=== PATIENT | female | born 1990 | race African-American/Black ===

== ENCOUNTER 2019-05-21 06:12 | Observation (INO) ==
[2019-05-21] MEDS ORDERED: ONDANSETRON 4 MG/2 ML VIAL IV STA ×2 (06:34→09:15)
[2019-05-21] MEDS ORDERED: SODIUM CHLORIDE 0.9% 1,000 ML IV STA (06:34)
[2019-05-21] MEDS ORDERED: HYDROmorphone 2 MG/1 ML VIAL IV STA ×2 (06:34→09:15)
[2019-05-21 06:39] LABS: Basophils % 0.4 % (0.0-0.8); Eosinophils # 0.1 10*3/uL (0.0-0.87); Eosinophils % 1.3 % (0.00-10.9); Hematocrit 37.5 VOL% (35.7-47.0); Hemoglobin 12.3 GM/DL (12.0-16.0); Immature Granulocytes % 0.3 %; Immature Granulocytes Absolute 0.03 #; Lymphocytes # 1.5 10*3/uL (1.4-4.0); Lymphocytes % 16.4 % (21.3-54.2); Mean Corpuscular HGB Conc 32.8 GM/DL (32-36); Mean Corpuscular Volume 99.7 FL (87-102); Mean Platelet Volume 9.5 FL (9.6-12.0); Monocytes % 9.8 % (1.7-12.7); Neutrophils % 71.8 % (38.7-73.9); Platelet Count 290 T/CUMM (130-400); Red Blood Count 3.76 MC/CUMM (3.8-5.5); Red Cell Distribution Width 12.9 % (9.3-17.3); White Blood Count 9.3 T/CUMM (4-12)
[2019-05-21 06:59] LABS: Albumin 3.6 G/DL (3.4-5.0); Bilirubin,Total 0.5 MG/DL (0.2-1.0); Osmolality,Calculated 273.7 MOS/KG (273-304); Total Protein 7.9 G/DL (6.4-8.3)
[2019-05-21 07:33] LABS: Apearance,Urine CLEAR (Clear); Bilirubin,Urine Negative (Negative); Blood, Urine Negative (Negative); Glucose,Urine (UA) Negative (Negative); Ketones,Urine 5 mg/dL (Negative); Mucus,Urine Moderate /LPF (Occasional); Nitrite,Urine Negative (Negative); Protein,Urine 30 MG/DL; RBC,Urine 13 /HPF (0-4); Squamous Epithelial Cell,Urine Occasional /HPF (0-10); Urine Color Yellow (Yellow); Urine Specific Gravity 1.024 (1.001-1.035); WBC,Urine 30 /HPF (0-6)
[2019-05-21] MEDS ORDERED: cefTRIAXone 1,000 MG in SODIUM CHLORIDE 0.9% 100 ML IV STA (08:21)
[2019-05-21] MEDS ORDERED: cefTRIAXone 1,000 MG in SYRINGE 1 EACH IV STA (08:24)
[2019-05-21] MEDS ORDERED: TISSUE ADHESIVE 1 EACH APPLICATOR TOP ONE (15:13)
[2019-05-21] MEDS ORDERED: HYDROmorphone 2 MG/1 ML VIAL ONE (15:34)
[2019-05-21] MEDS ORDERED: ONDANSETRON 4 MG/2 ML VIAL ONE ×2 (15:34→15:40)
[2019-05-21] MEDS: HYDROmorphone 2 MG/1 ML VIAL IV PRN ×4 (15:35→15:55)
[2019-05-21] MEDS ORDERED: MIDAZOLAM 2 MG/2 ML VIAL ONE (15:39)
[2019-05-21] MEDS ORDERED: LIDOCAINE 2% 5 ML VIAL ONE (15:39)
[2019-05-21] MEDS ORDERED: propofoL 200 MG/20 ML VIAL IV ONE (15:39)
[2019-05-21] MEDS ORDERED: SEVOFLURANE 1 UNIT/15 MINUTE INH ONE (15:39)
[2019-05-21] MEDS ORDERED: fentaNYL 100 MCG/2 ML VIAL ONE (15:39)
[2019-05-21] MEDS ORDERED: ROCURONIUM 100 MG/10 ML VIAL IV ONE (15:40)
[2019-05-21] MEDS ORDERED: SUCCINYLCHOLINE 200 MG/10 ML VIAL ONE (15:40)
[2019-05-21] MEDS ORDERED: LACTATED RINGERS 1,000 ML IV ONE (15:40)
[2019-05-21] MEDS ORDERED: GLYCOPYRROLATE 0.4 MG/2 ML VIAL ONE (15:40)
[2019-05-21] MEDS ORDERED: NEOSTIGMINE 10 MG/10 ML VIAL ONE (15:40)
[2019-05-21 15:45] LABS: Basophils % 0.2 % (0.0-0.8); Eosinophils # 0.1 10*3/uL (0.0-0.87); Hematocrit 31.8 VOL% (35.7-47.0); Hemoglobin 10.3 GM/DL (12.0-16.0); Immature Granulocytes % 0.5 %; Immature Granulocytes Absolute 0.06 #; Lymphocytes # 3.1 10*3/uL (1.4-4.0); Mean Corpuscular HGB Conc 32.4 GM/DL (32-36); Mean Corpuscular Volume 101.3 FL (87-102); Mean Platelet Volume 9.3 FL (9.6-12.0); Neutrophils % 65.3 % (38.7-73.9); Platelet Count 282 T/CUMM (130-400); Red Blood Count 3.14 MC/CUMM (3.8-5.5); White Blood Count 13.1 T/CUMM (4-12)
[2019-05-21] MEDS ORDERED: KETOROLAC 30 MG/1 ML VIAL IV STA (16:03)
[2019-05-21] MEDS ORDERED: MEPERIDINE 25 MG/1 ML VIAL IV STA (16:04)
[2019-05-21] MEDS ORDERED: KETOROLAC 30 MG/1 ML VIAL ONE (16:06)
[2019-05-21] MEDS: IBUPROFEN 800 MG TABLET PO PRN (19:39)
[2019-05-21 19:45] LABS: Basophils % 0.1 % (0.0-0.8); Hematocrit 29.2 VOL% (35.7-47.0); Hemoglobin 9.8 GM/DL (12.0-16.0); Immature Granulocytes % 0.6 %; Immature Granulocytes Absolute 0.11 #; Lymphocytes % 5.1 % (21.3-54.2); Mean Corpuscular HGB Conc 33.6 GM/DL (32-36); Mean Corpuscular Volume 100.7 FL (87-102); Mean Platelet Volume 9.5 FL (9.6-12.0); Monocytes % 10.2 % (1.7-12.7); Platelet Count 241 T/CUMM (130-400); Red Cell Distribution Width 13.2 % (9.3-17.3); White Blood Count 19.7 T/CUMM (4-12)
[2019-05-21 20:50] LABS: HIV Antigen/Antibody Result Nonreactive (Nonreactive)
[2019-05-21 20:55] LABS: Hepatitis B Surface Ag Quant < 0.10 Index; Hepatitis B Surface Ag Result Negative (Negative); Hepatitis C Virus Ab Quant < 0.02 Index; Hepatitis C Virus Ab Result Negative (Negative)
[2019-05-21] MEDS: ceFAZolin 2,000 MG in PREMIX 1 EACH IV SCH (22:48)
[2019-05-22] MEDS: IBUPROFEN 800 MG TABLET PO PRN (05:37)
[2019-05-22 06:06] LABS: Basophils % 0.2 % (0.0-0.8); Eosinophils # 0.1 10*3/uL (0.0-0.87); Eosinophils % 0.6 % (0.00-10.9); Hematocrit 26.7 VOL% (35.7-47.0); Hemoglobin 8.5 GM/DL (12.0-16.0); Immature Granulocytes % 0.6 %; Immature Granulocytes Absolute 0.09 #; Lymphocytes # 2.8 10*3/uL (1.4-4.0); Lymphocytes % 18.2 % (21.3-54.2); Mean Corpuscular HGB Conc 31.8 GM/DL (32-36); Mean Corpuscular Volume 102.3 FL (87-102); Mean Platelet Volume 9.7 FL (9.6-12.0); Monocytes % 11.5 % (1.7-12.7); Neutrophils % 68.9 % (38.7-73.9); Platelet Count 229 T/CUMM (130-400); Red Blood Count 2.61 MC/CUMM (3.8-5.5); Red Cell Distribution Width 13.1 % (9.3-17.3); White Blood Count 15.3 T/CUMM (4-12)
[2019-05-22] MEDS: ceFAZolin 2,000 MG in PREMIX 1 EACH IV SCH (06:08)
[2019-05-22] MEDS ORDERED: KETOROLAC 30 MG/1 ML VIAL IV ONE (07:55)
[2019-05-22] MEDS ORDERED: SIMETHICONE CHEW 80 MG TABLET PO PRN (08:13)
[2019-05-22 11:11] VITALS: BP 100/64
[2019-05-22 13:02] LABS: Basophils % 0.3 % (0.0-0.8); Eosinophils # 0.2 10*3/uL (0.0-0.87); Eosinophils % 1.5 % (0.00-10.9); Hematocrit 24.2 VOL% (35.7-47.0); Immature Granulocytes % 0.3 %; Immature Granulocytes Absolute 0.03 #; Lymphocytes # 2.4 10*3/uL (1.4-4.0); Mean Corpuscular HGB Conc 33.1 GM/DL (32-36); Mean Corpuscular Volume 101.7 FL (87-102); Mean Platelet Volume 9.5 FL (9.6-12.0); Monocytes % 13.8 % (1.7-12.7); Neutrophils % 63.1 % (38.7-73.9); Platelet Count 206 T/CUMM (130-400); Red Blood Count 2.38 MC/CUMM (3.8-5.5); Red Cell Distribution Width 13.2 % (9.3-17.3); White Blood Count 11.6 T/CUMM (4-12)
== END 2019-05-22 14:10 | disposition home or self-care (01) ==
LOC: EDUNIT# → EDBD → N.ED 06:12 → N.OB 12:35 → EDSTATUS 13:15 → N.OB 16:38 → N.LDOUT 18:54 → N.OB 18:54
PROVIDERS: ADMIT Obstetrics & Gynecology; ATTEND Obstetrics & Gynecology